=== PATIENT | female | born 1985 | race Caucasian/White ===

== ENCOUNTER 2018-11-07 08:21 | Outpatient (CLI) | payer BC ==
--- NOTE | 2018-11-07 10:00 | ULT ---
ULTRASOUND PELVIS TRANSVAGINAL WITH DOPPLER: HISTORY: PCOS. Pelvic pain. Bleeding. COMPARISON: None. TECHNIQUE: Real-time montilla-scale, color Doppler, and spectral analysis of the pelvis is performed. Transabdomina l and transvaginal approach is performed. FINDINGS: The uterus measures 8.1 x 6.2 x 4 cm. Endometrial thickness is 4 mm. The right ovary is not seen. The left ovary measures 5 x 4 x 3.4 cm. No free fluid. IMPRESSION: 1. Enlarged left ovary with volume greater than 10 mL, which can be seen with polycystic ovarian syn drome. 2. The right ovary is not well seen. 3. Normal endometrial thickness. POS: [facility] [place]
== END 2018-11-07 08:22 | disposition home or self-care (01) ==
LOC: SCSULT 08:21
PROVIDERS: ATTEND Emergency Medicine
DX: E28.2 Polycystic ovarian syndrome (principal); R10.2 Pelvic and perineal pain; N83.8 Other noninflammatory disorders of ovary, fallopian tube and broad ligament
CPT/HCPCS: 76856

== ENCOUNTER 2020-04-29 11:42 | Outpatient (CLI) | payer BC | END 2020-04-29 11:43 | disposition home or self-care (01) | LOC: DTY/OP 11:42 | PROVIDERS: ATTEND Surgery | DX: E66.01 Morbid (severe) obesity due to excess calories (principal) | CPT/HCPCS: 97802 ==

== ENCOUNTER 2020-05-29 05:39 | Outpatient (CLI) | payer BC, OTHER ==
--- NOTE | 2020-05-29 16:19 | RAD ---
RADIOGRAPH CHEST 2 VIEWS: DATE: 05/29/2020 HISTORY: 34-year-old female for preoperative clearance FINDINGS: There is no airspace density, pulmonary edema, pleural effusion, pneumothorax, or cardiomegaly. IMPRESSION: No acute cardiopulmonary findings.
[2020-05-29 18:38] LABS: #Basophils 0.1 thou/uL (0.0-0.2); #Eosinphils 0.2 thou/uL (0.0-0.7); #Lymphocytes 2.9 thou/uL (1.20-3.40); #Monocytes 0.6 thou/uL (0.11-0.59); #Neutrophils 6.5 thou/uL (1.40-6.50); %Basophils 0.8 % (0.0-1.0); %Eosinophils 1.5 % (0.0-10.0); %Lymphocytes 28.4 % (21.0-51.0); %Monocytes 5.5 % (0.0-10.0); %Neutrophils 63.9 % (42.0-75.0); Hemoglobin 13.1 g/dL (12.0-16.0); Mean Corpuscular Hemoglobin 29.5 pg (27.0-31.0); Mean Corpuscular Volume 86.7 fL (78.0-98.0); Mean Platelet Volume 8.4 fL (7.4-10.4); Platelet Count 366 thou/uL (130-400); RBC Distribution Width 12.7 % (11.5-14.5); Red Blood Cell (RBC) Count 4.44 mill/uL (4.20-5.40); White Blood Cell (WBC) Count 10.2 thou/uL (4.8-10.8)
[2020-05-29 18:56] LABS: BHCG - Serum Negative (NEGATIVE); Pregs Control Background? CLEAR/WHITE (CLR/WHITE); Pregs Control Bar Appear? YES (CONTROL BAR)
[2020-05-29 18:59] LABS: ALT (SGPT) 25 U/L (8-55); AST (SGOT) 20 U/L (5-34); Albumin 4.1 g/dL (3.5-5.0); Alkaline Phosphatase 100 U/L (40-110); Anion Gap 14 mmol/L (10-20); BUN (Urea Nitrogen) 13 mg/dL (7.0-18.7); Bilirubin, Total 0.3 mg/dL (0.2-1.2); Calc. Creatinine Clearance 0 mL/min (70-130); Calcium 9.2 mg/dL (7.8-10.44); Carbon Dioxide 23 mmol/L (22-29); Chloride 102 mmol/L (98-107); Estimated GFR-MDRD 73; Globulin 3.3 g/dL (2.4-3.5); Glucose 114 mg/dL (70-105); Potassium 4.1 mmol/L (3.5-5.1); Protein, Total 7.4 g/dL (6.0-8.3); Sodium 135 mmol/L (136-145)
[2020-05-29 19:02] LABS: Hemoglobin A1c 5.2 % (4.0-6.0)
[2020-05-30 12:33] LABS: SARS-CoV-2 MS2 Positive; SARS-CoV-2 N Gene Negative; SARS-CoV-2 S Gene Negative; SARS-CoV-2 orf1ab Negative
== END 2020-05-29 05:40 | disposition home or self-care (01) ==
LOC: LABBT 05:39
PROVIDERS: ATTEND Surgery
DX: Z01.818 Encounter for other preprocedural examination (principal); Z11.59 Encounter for screening for other viral diseases; E66.01 Morbid (severe) obesity due to excess calories
CPT/HCPCS: 71046; 80053; 83036; 84703; 85025; 87635; 93005; 93010; U0003

== ENCOUNTER 2020-05-29 16:30 | Inpatient (IN) | payer BC ==
[2020-05-28 10:47] VITALS: BMI 46.5
[2020-06-02] MEDS ORDERED: Ondansetron HCl/PF 4 MG/2 ML Vial IVP PRN ×2 (08:02→10:46)
[2020-06-02] MEDS ORDERED: Promethazine HCl 25 MG/ML VIAL IM PRN ×4 (08:02→12:33)
[2020-06-02] MEDS ORDERED: Promethazine HCl 25 MG/ML VIAL SLOW IVP PRN ×2 (08:02→10:46)
[2020-06-02] MEDS ORDERED: Meperidine HCl/PF 25 MG/ML VIAL SLOW IVP PRN (08:02)
[2020-06-02] MEDS ORDERED: Fentanyl 250 MCG/5 ML VIAL ONE (09:16)
[2020-06-02] MEDS ORDERED: Bupivacaine 0.25% HCL 30 ML VIAL ONE (09:22)
[2020-06-02] MEDS ORDERED: Lidocaine 2% w/Epinephrine 1:200K 20 ML VIAL ONE (09:22)
[2020-06-02] MEDS ORDERED: Heparin 5,000 UNITS/ML VIAL ONE (09:28)
[2020-06-02] MEDS ORDERED: Fentanyl 100 MCG/2 ML VIAL ONE ×2 (11:06→11:40)
[2020-06-02] MEDS ORDERED: Ondansetron PF 4 MG/2 ML Vial IVP PRN ×2 (11:11→12:33)
[2020-06-02] MEDS ORDERED: diphenhydrAMINE 25 MG CAP PO PRN (11:11)
[2020-06-02] MEDS ORDERED: HYDROmorphone 10 mg/100 ml CADD IVPB PRN (11:11)
[2020-06-02] MEDS ORDERED: Zolpidem Tartrate 5 MG TAB PO PRN (11:11)
[2020-06-02] MEDS ORDERED: diphenhydrAMINE 50 MG/ML VIAL IM PRN (11:11)
[2020-06-02] MEDS ORDERED: diphenhydrAMINE 50 MG/ML VIAL IVP PRN ×2 (11:11→12:33)
[2020-06-02] MEDS ORDERED: Naloxone HCl 0.4 mg/ml Vial IV PRN (11:11)
[2020-06-02] MEDS ORDERED: Communication Order-Pharmacy FS PRN (11:15)
--- NOTE | 2020-06-02 11:42 | OP ---
DATE OF PROCEDURE: 06/02/2020 PREOPERATIVE DIAGNOSIS: Morbid obesity with body mass index of 46. POSTOPERATIVE DIAGNOSES: Morbid obesity with body mass index of 46 plus hiatal hernia. PROCEDURES PERFORMED: 1. Laparoscopic sleeve gastrectomy with 38-Tamazight bougie and GORE staple line reinforcement. 2. Laparoscopic paraesophageal hiatal hernia repair without mesh for fundoplication. 3. Esophagogastroduodenoscopy. ANESTHESIA: General. ESTIMATED BLOOD LOSS: Minimal. COMPLICATIONS: None. SPECIMEN: Stomach. FINDINGS: Normal postoperative EGD. DESCRIPTION OF PROCEDURE: The patient was taken to the operating room and laid supine on the operating room table. After general anesthetic was obtained, arms and legs were double strapped to bariatric table. The abdomen was prepped and draped in a sterile fashion. A left subcostal 5-mm Optiview trocar was placed in the usual fashion and high-flow pneumoperitoneum was obtained. Left and right abdominal 12-mm trocars as well as right subcostal 5-mm trocar were all placed under direct visualization. A 5-mm incision was made at the xiphoid used to raise the liver off the GE junction. Short gastrics were taken down from the midbody of the stomach to the left marcos of diaphragm. Left marcos, posterior fundus, and angle of His were completely dissected, revealing a small paraesophageal hiatal hernia. A circumferential dissection of the esophagus was then performed. The right marcos was approached via the gastrohepatic ligament. Circumferential dissection was performed in the fundus, brought back down into the abdominal cavity as is the GE junction. A 38-bougie was brought in and its tip left in the antrum of the stomach. Multiple loads of Yettem stapling device were used to perform the sleeve; the first was fired up at a distance of 6 cm proximal to the pylorus, angled up towards the incisura. Multiple loads were fired up along the incisura, and the stomach was completely transected at the angle of His. The stomach was removed from left abdominal incision. This fascial defect was closed using GraNee needle and 0 Vicryl tie. One Ethibond suture and the Ti-Knot system were used to close the crural defect posteriorly. There was no bleeding on the staple line. EGD scope was passed through the esophagus down to level of the duodenum without obstruction. There was no stricture at the incisura. There was no involvement of the GE junction with the staple line. The EGD scope was pulled and removed. Artur retractor was removed under direct visualization without injury or bleeding. All port sites were infiltrated using local anesthetic and removed under direct visualization without bleeding. Pneumoperitoneum was let down. Vicryl was used to close the fascial defect from left abdominal incision. All incisions were irrigated and closed using 4-0 Monocryl and Dermabond. The patient was sent to Recovery in stable condition. All instrument counts, needle counts, and lap counts were correct. Job ID: [id number]
[2020-06-02] MEDS ORDERED: D5 1/2 NS w/20 mEq KCL 1,000 ML IV SCH (12:33)
[2020-06-02] MEDS ORDERED: Hydrocodone-Acetamin 15 ML UDCUP PO PRN (12:33)
[2020-06-02] MEDS ORDERED: Dextrose 5% in Water 1,000 ML IV PRN (12:33)
[2020-06-02] MEDS ORDERED: Dextrose 50% Abboject 50 ML SYRINGE SLOW IVP PRN (12:33)
[2020-06-02] MEDS ORDERED: hydrALAZINE 20 MG/ML VIAL SLOW IVP PRN (12:33)
[2020-06-02] MEDS ORDERED: Rocuronium Bromide 10 MG/ML (10ML VIAL) ONE (13:00)
[2020-06-02] MEDS ORDERED: Ketorolac Tromethamine 30 MG/ML VIAL ONE (13:00)
[2020-06-02] MEDS ORDERED: Glycopyrrolate 0.2 MG/ML 5 ML SYRINGE ONE (13:00)
[2020-06-02] MEDS ORDERED: EPHEDRINE 25 MG/5 ML SYRINGE ONE (13:00)
[2020-06-02] MEDS ORDERED: Ondansetron PF 4 MG/2 ML Vial ONE (13:00)
[2020-06-02] MEDS ORDERED: Dexamethasone 20 MG/5 ML VIAL ONE (13:00)
[2020-06-02] MEDS ORDERED: Lidocaine 1% PF 5 ML VIAL ONE (13:00)
[2020-06-02] MEDS ORDERED: PROPOFOL 200 MG/20 ML VIAL ONE (13:00)
[2020-06-02] MEDS ORDERED: Sodium Chloride 0.9% (PF) 10 ML VIAL FS PRN (13:10)
[2020-06-02] MEDS ORDERED: Enoxaparin Sodium 40 MG/0.4 ML SYRINGE SC SCH (21:00)
[2020-06-03 05:15] LABS: #Basophils 0.1 thou/uL (0.0-0.2); #Lymphocytes 2.4 thou/uL (1.20-3.40); #Monocytes 0.8 thou/uL (0.11-0.59); %Basophils 0.5 % (0.0-1.0); %Eosinophils 0.2 % (0.0-10.0); %Lymphocytes 19.7 % (21.0-51.0); %Monocytes 6.3 % (0.0-10.0); %Neutrophils 73.3 % (42.0-75.0); Hemoglobin 11.1 g/dL (12.0-16.0); Mean Corpuscular HGB CONC 31.6 g/dL (32.0-36.0); Mean Corpuscular Hemoglobin 28.2 pg (27.0-31.0); Mean Corpuscular Volume 89.2 fL (78.0-98.0); Mean Platelet Volume 7.9 fL (7.4-10.4); Platelet Count 314 thou/uL (130-400); RBC Distribution Width 12.7 % (11.5-14.5); Red Blood Cell (RBC) Count 3.94 mill/uL (4.20-5.40); White Blood Cell (WBC) Count 12.3 thou/uL (4.8-10.8)
[2020-06-03 05:54] LABS: Anion Gap 13 mmol/L (10-20); BUN (Urea Nitrogen) 8 mg/dL (7.0-18.7); Calc. Creatinine Clearance 205 mL/min (70-130); Carbon Dioxide 20 mmol/L (22-29); Chloride 103 mmol/L (98-107); Estimated GFR-MDRD 83; Glucose 120 mg/dL (70-105); Potassium 5.2 mmol/L (3.5-5.1); Sodium 131 mmol/L (136-145)
--- NOTE | 2020-06-03 08:04 | PDOC.GSPN ---
Surgery Progress Note: Subj - Subjective Patient reports: no new complaints, tolerating liquids well, no bowel movement, no flatus (has burped) Surgery Progress Note: Obj - Vital signs Vital signs: Vital Signs - Most Recent Temp Pulse Resp BP Pulse Ox 98.5 F 74 16 112/76 95 06/03/20 03:27 06/03/20 03:27 06/03/20 03:27 06/03/20 03:27 06/03/20 03:27 - Physical Exam General: no distress, no pain, obese ENT: no congestion Neck: no bruits, no elizabeth distention Cardiovascular: regular rate and rhythm Respiratory: clear to auscultation, normal respiratory effort, breath sounds present Abdomen: soft, non tender, nondistended, positive bowel sounds Psychiatric: memory intact, oriented to time, oriented to person, oriented to place, speech is normal Wound: dressing clean,dry,intact, healing well Surgery Progress Note: Results - Labs Result Diagrams: 06/03/20 04:56 06/03/20 04:56 Lab results: Laboratory Results - last 24 hr 06/03/20 06/03/20 04:56 04:56 WBC 12.3 H RBC 3.94 L Hgb 11.1 L Hct 35.1 L MCV 89.2 MCH 28.2 MCHC 31.6 L RDW 12.7 Plt Count 314 MPV 7.9 Neutrophils % 73.3 Lymphocytes % 19.7 L Monocytes % 6.3 Eosinophils % 0.2 Basophils % 0.5 Neutrophils # 9.0 H Lymphocytes # 2.4 Monocytes # 0.8 H Eosinophils # 0.0 Basophils # 0.1 Sodium 131 L Potassium 5.2 H Chloride 103 Carbon Dioxide 20 L Anion Gap 13 BUN 8 Creatinine 0.79 Estimated GFR (MDRD) 83 Glucose 120 H Calcium 8.0 - EKG Data Rate: normal Surgery Progress Note: A/P - Problem (1) Morbid obesity Current Visit: Yes Code(s): E66.01 - MORBID (SEVERE) OBESITY DUE TO EXCESS CALORIES Status: Acute - Plan Plan: Continue the patient on a liquid diet and encourage more activity today.
--- NOTE | 2020-06-03 08:20 | DIS ---
DATE OF ADMISSION: 06/02/2020 DATE OF DISCHARGE: 06/03/2020 ADMITTING DIAGNOSIS: Morbid obesity. DISCHARGE DIAGNOSIS: Morbid obesity. PROCEDURE PERFORMED: Laparoscopic sleeve and hiatal hernia repair by Dr. Shrestha without complication. CONDITION ON: Improved. STAFF: Fernando Shrestha MD HOSPITAL COURSE: On postop day 1, the patient is doing well. Her pain is controlled. She is ambulatory. No shortness of breath. She is tolerating the liquid diet. She is discharged home. Prescriptions for Lortab elixir, pantoprazole, and Zofran sent to her pharmacy. She will follow up with me in 2 weeks. Job ID: [id number]
[2020-06-03 08:51] VITALS: BP 115/80; TEMP 97.9
[2020-06-03] MEDS ORDERED: Pantoprazole 40 MG VIAL IVP SCH (09:00)
== END 2020-06-03 11:37 | disposition home or self-care (01) | DRG 621 ==
LOC: SURG A 06-02 06:59 → EDSTATUS 06-02 16:30
PROVIDERS: ADMIT Surgery; ATTEND Surgery
PROC: 0DB64Z3 Excision of Stomach, Percutaneous Endoscopic Approach, Vertical (ICD-10-PCS; principal; 2020-06-02)
PROC: 0BQT4ZZ Repair Diaphragm, Percutaneous Endoscopic Approach (ICD-10-PCS; 2020-06-02)
PROC: 0DJ08ZZ Inspection of Upper Intestinal Tract, Via Natural or Artificial Opening Endoscopic (ICD-10-PCS; 2020-06-02)
DX: E66.01 Morbid (severe) obesity due to excess calories (principal); Z68.42 Body mass index [BMI] 45.0-49.9, adult; K44.9 Diaphragmatic hernia without obstruction or gangrene
CPT/HCPCS: 36415; 80048; 85025; 88307; 88312; C9113; J0690; J1100; J1644; J1650; J1885; J2405; J2704; J3010; J3480; S0020

== ENCOUNTER 2020-06-17 12:44 | Day surgery (SDC) | payer BC ==
[2020-06-17] MEDS ORDERED: Ondansetron PF 4 MG/2 ML Vial IVP PRN (12:52)
[2020-06-17] MEDS ORDERED: Multivitamins, Adult 10 ML in Sodium Chloride 0.9% 1,000 ML IV SCH (13:00)
[2020-06-17] MEDS ORDERED: Sodium Chloride 0.9% 1,000 ML IV SCH (13:00)
== END 2020-06-17 16:32 | disposition home or self-care (01) ==
LOC: ONC/OP 12:44
PROVIDERS: ATTEND Surgery
DX: E86.0 Dehydration (principal)
CPT/HCPCS: 96361; 96365; 96366; 96375; J3411; J7050

== ENCOUNTER 2020-07-15 12:51 | Day surgery (SDC) | payer BC ==
[2020-07-15] MEDS ORDERED: Ondansetron PF 4 MG/2 ML Vial IVP PRN (13:36)
[2020-07-15] MEDS ORDERED: Thiamine HCl 200 MG/2 ML VIAL SLOW IVP SCH (13:45)
[2020-07-15] MEDS ORDERED: Sodium Chloride 0.9% 1,000 ML IV SCH (13:45)
[2020-07-15] MEDS ORDERED: Multivitamins, Adult 10 ML in Sodium Chloride 0.9% 500 ML IV SCH (13:45)
[2020-07-15 13:57] LABS: #Basophils 0.1 thou/uL (0.0-0.2); #Eosinphils 0.1 thou/uL (0.0-0.7); #Lymphocytes 2.4 thou/uL (1.20-3.40); #Monocytes 0.5 thou/uL (0.11-0.59); #Neutrophils 5.7 thou/uL (1.40-6.50); %Basophils 0.7 % (0.0-1.0); %Lymphocytes 27.2 % (21.0-51.0); %Monocytes 5.6 % (0.0-10.0); %Neutrophils 65.6 % (42.0-75.0); Hemoglobin 13.2 g/dL (12.0-16.0); Mean Corpuscular HGB CONC 33.7 g/dL (32.0-36.0); Mean Corpuscular Hemoglobin 29.8 pg (27.0-31.0); Mean Corpuscular Volume 88.4 fL (78.0-98.0); Mean Platelet Volume 9.5 fL (7.4-10.4); Platelet Count 287 thou/uL (130-400); Red Blood Cell (RBC) Count 4.43 mill/uL (4.20-5.40); White Blood Cell (WBC) Count 8.7 thou/uL (4.8-10.8)
[2020-07-15 14:15] LABS: Anion Gap 11 mmol/L (10-20); BUN (Urea Nitrogen) 16 mg/dL (7.0-18.7); Calc. Creatinine Clearance 0 mL/min (70-130); Calcium 9.1 mg/dL (7.8-10.44); Carbon Dioxide 27 mmol/L (22-29); Chloride 102 mmol/L (98-107); Estimated GFR-MDRD 80; Glucose 77 mg/dL (70-105); Sodium 136 mmol/L (136-145)
[2020-07-15 14:59] LABS: Vitamin B12 Greater than 2000 pg/mL (211-911)
== END 2020-07-15 15:52 | disposition home or self-care (01) ==
LOC: ONC/OP 12:51
PROVIDERS: ATTEND Surgery
DX: E86.0 Dehydration (principal)
CPT/HCPCS: 36415; 80048; 82607; 82728; 84425; 85025; 96361; 96365; 96366; 96375; J3411; J7030

== ENCOUNTER 2023-05-29 11:53 | Outpatient (CLI) | payer BC | END 2023-05-29 11:54 | disposition home or self-care (01) | LOC: RAD 11:53 | PROVIDERS: ATTEND Specialist | DX: S43.429A Sprain of unspecified rotator cuff capsule, initial encounter (principal); M19.011 Primary osteoarthritis, right shoulder ==